=== PATIENT | female | born 1980 | race Caucasian/White ===

== ENCOUNTER 2023-01-16 21:25 | Emergency (ER) | payer SELFPAY ==
--- OUTSIDE RECORDS SUMMARY | 2023-01-16 21:29 | XMS REPORT | Continuity of Care Document ---
:1980 Author Organization [facility] t Address [address] [facility]. [address] [place] [address] Care Team Providers Name Role Phone Pcp, Patient Does Not Have A Primary Care Physician +[id number] Radha Woods RN Attending Clinician Unavailable JOSEPH CARRILLO Attending Clinician Unavailable Only, [facility] Test Attending Clinician Unavailable Joseph Carrillo MD Attending Clinician Areli Mclean RN Attending Clinician Unavailable Only, [facility]aro Test Attending Clinician Unavailable Dimitri Clifton DO Attending Clinician DIMITRI CLIFTON Attending Clinician Unavailable Only, Gal Adult Uc Test Attending Clinician Unavailable Unknown, Attending Attending Clinician Unavailable UNKNOWN, ATTENDING Attending Clinician Unavailable Janet Galvez Attending Clinician CODI CAVANAUGH Attending Clinician Unavailable Care, [facility]aro Urgent Attending Clinician Unavailable FADY BOWDEN Attending Clinician Unavailable Problems This patient has no known problems. Allergies, Adverse Reactions, Alerts This patient has no known allergies or adverse reactions. Social History Social Habit Start Date Stop Date Quantity Comments Source [facility] Exposure to 2021-10-25 2021-11-04 Not sure University of SARS-CoV-2 (event) 00:00:00 11:40:00 [facility] Alcohol intake 2019-09-30 2019-09-30 Current [facility] 00:00:00 00:00:00 non-drinker of Hospital alcohol (finding) History of Social 2019-09-30 2019-09-[address] function 00:00:00 00:00:00 Hospital Tobacco use and 2017-12-17 2017-12-17 Smokeless [facility] exposure 00:00:00 00:00:00 tobacco non-user Hospital Sex Assigned At [birth year] [facility] 00:[facility]00 Hospital Smoking Status Start Date Stop Date Source Unknown if ever smoked [facility] smoked [facility] Medications Ordered Filled Start Stop Current Ordering Indication Dosage Frequency Signature Comments Components Source Medication Medication Date Date Medication? Clinician (SIG) Name Name No known No Univers medications 1-23 ity of 20:04: [address] No known No [facility] medications 1-23 ity of 20:04: [address] Procedures This patient has no known procedures. Plan of Care Planned Activity Planned Date Details Comments Source Future Scheduled 2023-01-05 COVID-19 VACCINE [facility] Test 15:04:03 (#1) [code = COVID-19 VACCINE (#1)] Future Scheduled 2023-01-05 Screening for [facility] Test 15:04:03 malignant neoplasm of cervix (procedure) [code = 373931096] Future Scheduled 2023-01-05 BREAST CANCER [facility] Test 15:04:03 SCREENING [code = BREAST CANCER SCREENING] Future Scheduled 2023-01-05 INFLUENZA VACCINE [facility] Test 15:04:03 [code = INFLUENZA VACCINE] Encounters Start End Encounter Admission Attending Care Care Encounter Source Date/Time Date/Time Type Type Clinicians Facility Department ID 2021-11-06 2021-11-06 Telephone LAM Woods [id number] Univers 00:00:00 00:00:00 Radha FOURNIER [id number] i [facility] [id number] Lazaro as [phone] [place] [address] Branch 2021-11-05 2021-11-05 Outpatient Andry CARRILLO [facility] [id number] Univers 18:45:00 18:45:[address] [facility] 2021-11-05 2021-11-05 Laboratory Only, Lazaro Uc Test [facility] 1.2.8 40.114 [id number] Univers 18:45:00 18:45:00 Only Joseph Carrillo [employer] [id number] ity of [place] [id number] [facility] [phone] [facility] & [address] Branch SPECIALTY CARE 2021-09-30 2021-09-30 Letter LAM Mclean 1.2.840.114 [id number] Univers 00:00:00 00:00:00 (Out) Areli [place] IRLANDA [id number] it y [facility] [id number] Lazaro as [id number] [address] 2021-09-29 2021-09-29 Laboratory Only, Lazaro Test [facility] 1.2.840. 114 [id number] Univers 14:30:00 14:45:00 Only Dimitri Clifton [facility] [id number]. 10 ity [place] [id number] [facility] [phone] [facility] PRIMARY & [facility] Branch SPECIALTY CARE 2021-09-29 2021-09-29 Outpatient R ELODIA [facility] [id number] Univers 14:30:00 14:30:00 [facility]-08-07 2021-08-07 LAM Cochran 1.2.840.114 [id number] Univers 00:00:00 00:00:00 (Out) Arelijose REEDY [id number] it y of [facility] 4.2.7.2.686 Lazaro as [id number] [address] 2021-08-06 2021-08-06 Outpatient R LORENA [facility] [id number] Univers 16:00:00 16:00:[address] [facility] 2021-08-06 2021-08-06 Laboratory Only, Lazaro Uc Test [facility] 1.2.8 40.114 [id number] Univers 16:00:00 16:00:00 Only LorenaJoseph [employer] [id number] ity [place] 4.2.7.2.686 [facility] [phone] [facility] & [address] SPECIALTY CARE 2021-07-24 2021-07-24 Laboratory Only, Gal Adult Uc Test [facility] 1.2.840.114 [id number] Univers 12:15:00 12:30:00 Only Unknown, Attending COMER [id number] ity of Joseph Carrillo PEDIATRIC 4.2.7.2.686 [facility] [id number] [facility] [address] 2021-07-24 2021-07-24 Outpatient R LORENA [facility] [id number] Univers 12:15:00 12:16:31 [facility] 2021-07-15 2021-07-15 Letter LAM Mclean 1.2.840.114 [id number] Univers 00:00:00 00:00:00 (Out) Areli FOURNIER [id number] it y [facility] [id number] Lazaro [id number] [facility] 019 Branch 2021-07-14 2021-07-14 Laboratory Only, L[facility]aro Uc Test [place] 1.2.8 40.114 [id number] Univers 17:15:00 17:30:00 Only Joseph Carrillo [facility] [id number] [facility] [id number] [facility] [id number] [facility] PR[facility] & [address] SPECIALTY CARE 2021-07-14 2021-07-14 Outpatient R LORENA [facility] [id number] Univers 17:15:00 17:15:00 [facility] 2021-07-14 2021-07-14 Outpatient R UNKNOWN, [facility] [id number] Univers 14:30:00 14:30:[address] [facility] 2021-07-14 2021-07-14 Outpatient R UNKNOWN, [facility] [id number] Univers 14:30:00 14:30:[address] [facility] 2021-07-14 2021-07-14 Outpatient R UNKNOWN, [facility] [id number] Univers 14:30:00 14:30:[address] [facility] 2021-07-03 2021-07-03 Laboratory Only, Gal Adult Uc Test [facility] 1.2.840.114 [id number] Univers 12:15:00 12:30:00 Only Manny Woodenn Jose GAINES [id number] ity of Joseph Carrillo PEDIATRIC 4.2.7.2.686 [facility] [id number] [place] [address] Branch 2021-07-03 2021-07-03 [facility] [id number] Univers 12:15:00 12:28:16 [facility] 2021-06-27 2021-06-27 Letter LAM Mclean 1.2.840.114 [id number] Univers 00:00:00 00:00:00 (Out) Areli FOURNIER [id number] it y of [facility] 4.2.7.2.686 [facility] [id number] [facility] 019 Branch 2021-06-26 2021-06-26 Laboratory Only, Gal Adult Uc Test [facility] 1.2.840.114 [id number] Univers 20:30:00 20:45:00 Only Lorena [facility] [id number] ity of PEDIATRIC 4.2.7.2.686 [facility] [phone] [address] 2021-06-26 2021-06-26 Outpatient Andry CARRILLO [facility] [id number] Univers 20:30:00 20:19:09 [facility] 2021-06-20 2021-06-20 Outpatient Andry CARRILLO [facility] [id number] Univers 18:00:00 19:02:57 [facility] 2021-06-20 2021-06-20 Laboratory Only, Lazaro Uc Test [facility] 1.2.8 40.114 [id number] Univers 18:00:00 19:02:57 [facility] [id number] it[place] 4.2.7.2.686 [facility] [phone] [facility] & [address] SPECIALTY CARE 2021-06-15 2021-06-15 Letter LAM Mclean 1.2.840.114 [id number] Univers 00:00:00 00:00:00 (Out) Areli FOURNIER [id number] it y [facility] [id number] Lazaro [id number] [place] [address] Branch 2021-06-13 2021-06-13 Laboratory Only, Lazaro Uc Test [facility] 1.2.8 40.114 [id number] Univers 11:15:00 13:15:39 Only Lorena Joseph H [employer] [id number] ity [place] 4.2.7.2.686 [facility] [place] [id number] [facility] [address] SPECIALTY CARE 2021-06-13 2021-06-13 Outpatient R LORENA [facility] [id number] Univers 11:15:00 11:15:00 [facility] 2021-06-07 2021-06-07 Laboratory Only, [facility] Uc Test [facility] 1.2.8 40.114 [id number] Univers 20:15:00 20:30:00 Only Lorena Joseph [employer] [id number] [facility] 4.2.7.2.686 [facility] [place] [phone] [facility] & [facility] Branch SPECIALTY CARE 2021-06-07 2021-06-07 Outpatient R LORENA [facility] [id number] Univers 20:15:00 20:15:00 [facility] 2021-05-27 2021-05-27 Outpatient R UNKNOWN, [facility] [id number] Univers 17:45:00 17:45:00 ATTENDING [facility] 2021-05-27 2021-05-27 Outpatient R UNKNOWN, [facility] [id number] Univers 17:45:00 17:45:00 ATTENDING [facility] 2021-05-27 2021-05-27 Outpatient R UNKNOWN, [facility] [id number] Univers 17:45:00 17:45:00 ATTENDING [facility] 2021-05-26 2021-05-26 Letter LAM Mclean 1.2.840.114 [id number] Univers 00:00:00 00:00:00 (Out) Areli FOURNIER 350.1.13.10 it y [facility] [id number] Lazaro as [id number] [place] [address] Branch 2021-05-25 2021-05-25 Outpatient R LORENA [facility] [id number] Univers 11:00:00 11:45:37 JOSEPH [facility] 2021-05-25 2021-05-25 Laboratory Only, Lazaro Test [facility] 1.2.8 40.114 [id number] Univers 11:00:00 11:15:00 Only LorenaJoseph [facility] [id number] [facility] [id number] [facility] [id number] [facility] [address] SPECIALTY CARE 2021-05-25 2021-05-25 Outpatient R LORENA [facility] [id number] Univers 11:00:00 11:00:00 [facility] 2021-05-22 2021-05-22 Outpatient R AFSHAN [facility] [id number] Univers 20:30:00 20:30:00 CODI contreras o bruce [facility] 2021-05-22 2021-05-22 Outpatient R AFSHAN [facility] [id number] Univers 20:30:00 20:30:00 CODI garsiay o bruce [facility] 2021-05-14 2021-05-14 Outpatient R UNKNOWN, [facility] [id number] Univers 11:30:00 11:30:00 ATTENDING [facility] 2021-05-14 2021-05-14 Outpatient R UNKNOWN, [facility] [id number] Univers 11:30:00 11:30:00 ATTENDING [facility] 2021-05-14 2021-05-14 Letter LAM Mclean 1.2.840.114 [id number] Univers 00:00:00 00:00:00 (Out) Areli FOURNIER [id number] it [facility] [id number] Lazaro as [id number] [place] [address] Branch 2021-05-13 2021-05-13 [facility] [id number] Univers 19:45:00 20:07:51 [facility] 2021-05-13 2021-05-13 Laboratory Only, Lazaro Uc Test [facility] 1.2.8 40.114 [id number] Univers 19:41:31 19:56:31 Only Lorena [facility] [id number] ity of [place] 4.2.7.2.686 [facility] [id number] [facility] & [address] SPECIALTY CARE 2021-05-13 2021-05-13 Outpatient Andry CARRILLO [facility] [id number] Univers 19:45:00 19:45:00 [facility] 2021-04-27 2021-04-27 Outpatient Andry CARRILLO [facility] [id number] Univers 15:30:00 15:54:24 [facility] 2021-04-27 2021-04-27 Laboratory Only, Lazaro Uc Test [facility] 1.2.8 40.114 [id number] Univers 15:19:26 15:54:24 Only Lorena [facility] 350.1.13.10 ity of [place] [id number] [facility] [phone] [facility] PR[facility] & [facility] Branch SPECIALTY CARE 2021-04-27 2021-04-27 Outpatient Andry CARRILLO [facility] [id number] Univers 15:30:00 15:30:00 [facility] 2021-04-17 2021-04-17 Letter LAM Mclean 1.2.840.114 [id number] Univers 00:00:00 00:00:00 (Out) Areli FOURNIER 350.1.13.10 it [facility] 4.2.7.2.686 Lazaro as [id number] [address] 2021-04-16 2021-04-16 [facility] [id number] Univers 11:30:00 11:37:59 [facility] 2021-04-16 2021-04-16 Laboratory Only, Lazaro Uc Test [facility] 1.2.8 40.114 [id number] Univers 11:18:57 11:37:59 Only Unknown, Attending HEALTH 350.1.13.10 ity of [place] 4.2.7.2.686 [place] [id number] [facility] PR[facility] & [address] SPECIALTY CARE 2021-04-16 2021-04-16 Outpatient Andry CARRILLO [facility] [id number] Univers 11:30:00 [facility]:30[facility] 2021-04-03 2021-04-03 Letter Care, [facility] [id number] Univers 00:00:00 00:00:00 (Out) Urgent HEALTH 350.1.13.10 it y of [place] 4.2.7.2.686 [facility] [id number] [facility] & [address] SPECIALTY CARE 2021-04-01 2021-04-01 Outpatient Andyr CARRILLO [facility] [id number] Univers 16:00:00 16:00:00 [facility] 2021-04-01 2021-04-01 Outpatient Andry CARRILLO [facility] [id number] Univers 16:00:00 16:00:00 [facility] 2021-04-01 2021-04-01 Outpatient Andry CARRILLO [facility] [id number] Univers 16:00:00 16:00:00 [facility] 2021-04-01 2021-04-01 Outpatient Andry CARRILLO [facility] [id number] Univers 16:00:00 16:00:00 [facility] 2021-04-01 2021-04-01 Outpatient Andry CARRILLO [facility] [id number] Univers 14:00:00 14:02:02 [facility] 2021-04-01 2021-04-01 Laboratory Only, [facility] 1.2.8 40.114 [id number] Univers 13:46:09 14:02:02 Only Unknown, Attending HEALTH 350.1.13.10 ity of Joseph Carrillo [place] 4.2.7.2.686 [place] [id number] [facility] PR[facility] & [address] SPECIALTY CARE 2021-04-01 2021-04-01 Outpatient Andry CARRILLO [facility] [id number] Univers 14:00:00 14:00:[address] [facility] 2019-09-30 2019-09-30 Emergency DENNISE FADY [facility] [id number] [place] 00:00:00 00:00:[address] Results This patient has no known results.
--- NOTE | 2023-01-16 21:33 | EDPHYS ---
Physician Documentation [facility] Name: Arabella Lacey Age: 43 yrs Sex: Female : 1980 Arrival Date: 01/16/2023 Time: 21:25 Bed 13 Private MD: ED Physician Joon Styles HPI: 01/16 21:38 This 43 yrs old Female presents to ER via Ambulatory with complaints of Toothache, Jaw kb Pain. 21:38 The patient presents with pain, redness, swelling. The problem is located in the lower kb left first molar and lower left second bicuspid. Onset: The symptoms/episode began/occurred yesterday. Duration: The symptoms are continuous. Modifying factors: The symptoms are alleviated by nothing, the symptoms are aggravated by nothing. Associated signs and symptoms: Pertinent positives: pain, redness in area, swelling. Severity of symptoms: At their worst the symptoms were moderate, in the emergency department the symptoms are unchanged. The patient has experienced similar episodes in the past, a few times. The patient has not recently seen a physician. Pt reports pain, swelling and redness to left lower teeth that started yesterday. States this has happened in the past and she needs the teeth pulled, but can't afford to go to the dentist at this time. 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 - Social history:: Smoking status: Reported history of juuling and/or vaping. ROS: 21:38 Constitutional: Negative for fever, chills, and weight loss. kb 21:38 ENT: Positive for dental pain. 21:38 All other systems are negative. Exam: 21:38 Constitutional: This is a well developed, well nourished patient who is awake, alert, kb and in no acute distress. Head/Face: Normocephalic, atraumatic. Cardiovascular: Regular rate and rhythm with a normal S1 and S2. No gallops, murmurs, or rubs. No pulse deficits. Respiratory: Respirations even and unlabored. No increased work of breathing. Talking in full sentences Skin: Warm, dry with normal turgor. Normal color. MS/ Extremity: Pulses equal, no cyanosis. Neurovascular intact. Full, normal range of motion. Neuro: Awake and alert, GCS 15, oriented to person, place, time, and situation. Moves all extremities. Normal gait. 21:38 ENT: Dental exam: gum swelling, that is mild, specifically in the lower left first molar (#19) and lower left second bicuspid (#20), pain, that is moderate, specifically in the lower left first molar (#19) and lower left second bicuspid (#20). Vital Signs: 21:33 BP 130 / 82; Pulse 88; Resp 18; Temp 97.1(O); Pulse Ox 100% on R/A; Weight 79.38 kg; mb9 Height 5 ft. 1 in. ; Pain 10/10; 21:33 Body Mass Index 33.07 (79.38 kg, 154.94 cm) mb9 21:33 Pain Scale: Adult mb9 MDM: 21:30 Patient medically screened. kb 21:38 Differential diagnosis: dental caries, gingivitis, dental abscess. Data reviewed: vital kb signs, nurses notes. Care significantly affected by the following Social Determinants of Health: Poor access to healthcare and/or lack of insurance. Counseling: I had a detailed discussion with the patient and/or guardian regarding: the historical points, exam findings, and any diagnostic results supporting the discharge/admit diagnosis, the need for outpatient follow up, a dentist, to return to the emergency department if symptoms worsen or persist or if there are any questions or concerns that arise at home. Administered Medications: 21:40 Drug: Amoxicillin-Clavulanate PO 875 mg Route: PO; mb9 21:42 Follow up: Response: No adverse reaction mb9 Disposition: 01/17 02:58 Co-signature as Attending Physician, Joon Styles MD I agree with the assessment sp4 and plan of care. I reviewed the patient's care provided by the Advanced Practice Provider and agree with the diagnosis and treatment plan. Disposition Summary: 01/16/23 21:33 Discharge Ordered Location: Home kb Condition: Stable kb Diagnosis - Periapical abscess without sinus kb Followup: kb - With: Emergency Department - When: As needed - Reason: Worsening of condition Followup: kb - With: Private Physician - When: 2 - 3 days - Reason: Recheck today's complaints, Continuance of care, Re-evaluation by your physician Discharge Instructions: - Discharge Summary Sheet kb - Dental Pain, [id number] kb - Dental Abscess, [id number]-[id number] kb Forms: - Medication Reconciliation Form kb - Thank You Letter kb - Antibiotic Education kb - Prescription Opioid Use kb - Patient Portal Instructions kb - Leadership Thank You Letter kb Prescriptions: - Augmentin 875-125 mg Oral Tablet - take 1 tablet by ORAL route every 12 hours for 10 days; 20 tablet; Refills: 0, kb Product Selection Permitted Signatures: Yahaira Brown FNP-C FNP-Ckb Breneman, Mary Beth, RN RN mb9 Joon Styles MD MD sp4
--- NOTE | 2023-01-16 21:43 | ER ---
Nurse's Notes [facility] Name: Arabella Lacey Age: 43 yrs Sex: Female : 1980 Arrival Date: 01/16/2023 Time: 21:25 Bed 13 Private MD: Diagnosis: Periapical abscess without sinus Presentation: 01/16 21:33 Chief complaint: Patient states: "My tooth and left jaw started hurting really bad mb9 yesterday. Now it feels swollen". Coronavirus screen: Vaccine status: Patient reports receiving the 2nd dose of the covid vaccine. Ebola Screen: No symptoms or risks identified at this time. Initial Sepsis Screen: Does the patient meet any 2 criteria? No. Patient's initial sepsis screen is negative. Does the patient have a suspected source of infection? No. Patient's initial sepsis screen is negative. Risk Assessment: Do you want to hurt yourself or someone else? Patient reports no desire to harm self or others. Onset of symptoms was January 16, 2023. 21:33 Method Of Arrival: Ambulatory mb9 21:33 Acuity: SUSANNE 4 mb9 Triage Assessment: 21:34 General: Appears in no apparent distress. Behavior is calm, cooperative. Pain: mb9 Complains of pain in jaw Pain does not radiate. Pain currently is 10 out of 10 on a pain scale. Quality of pain is described as aching, throbbing. EENT: Poor dentition noted. Neuro: Andrea Agitation-Sedation Scale (RASS): 0 - Alert and Calm Level of Consciousness is awake, alert, obeys commands, Oriented to person, place, time, situation, Appropriate for age. Cardiovascular: Patient's skin is warm and dry. Respiratory: Airway is patent Respiratory effort is even, unlabored, Respiratory pattern is regular, symmetrical, Breath sounds are clear bilaterally. GI: No signs and/or symptoms were reported involving the gastrointestinal system. : No signs and/or symptoms were reported regarding the genitourinary system. Derm: Skin is pink, warm \\T\\ dry. Musculoskeletal: Range of motion: intact in all extremities. MEDICAL DOCTOR: 21:35 LMP N/A - mb9 Historical: - Allergies: 21:34 No Known Allergies; mb9 - Home Meds: 21:34 None [Active]; mb9 - PMHx: 21:34 Anxiety; Depressive disorder; mb9 - PSHx: 21:34 Ligation of fallopian tube; mb9 - Immunization history:: Adult Immunizations up to date. - Social history:: Smoking status: Reported history of juuling and/or vaping. Screenin:36 [facility] ED Fall Risk Assessment (Adult) History of falling in the last 3 months, mb9 including since admission No falls in past 3 months (0 pts) Confusion or Disorientation No (0 pts) Intoxicated or Sedated No (0 pts) Impaired Gait No (0 pts) Mobility Assist Device Used No (0 pt) Altered Elimination No (0 pt) Score/Fall Risk Level 0 - 2 = Low Risk Oriented to surroundings, Maintained a safe environment, Educated pt \\T\\ family on fall prevention, incl call for assistance when getting out of bed. Abuse screen: Denies threats or abuse. Nutritional screening: No deficits noted. Tuberculosis screening: No symptoms or risk factors identified. Assessment: 21:35 Reassessment: No changes from previously documented assessment. Patient and/or family mb9 updated on plan of care and expected duration. Pain level reassessed. Patient is alert, oriented x 3, equal unlabored respirations, skin warm/dry/pink. Vital Signs: 21:33 BP 130 / 82; Pulse 88; Resp 18; Temp 97.1(O); Pulse Ox 100% on R/A; Weight 79.38 kg; mb9 Height 5 ft. 1 in. ; Pain 10/10; 21:33 Body Mass Index 33.07 (79.38 kg, 154.94 cm) mb9 21:33 Pain Scale: Adult mb9 ED Course: 21:28 Patient arrived in ED. kj1 21:30 Yahaira Brown FNP-C is PHCP. kb 21:30 Joon Styles MD is Attending Physician. kb 21:34 Triage completed. mb9 21:34 Arm band placed on. mb9 21:36 Erika Ty RN is Primary Nurse. mb9 21:36 Placed in gown. Bed in low position. Call light in reach. Side rails up X 1. Client mb9 placed on continuous cardiac and pulse oximetry monitoring. NIBP monitoring applied. 21:36 No provider procedures requiring assistance completed. Patient did not have IV access mb9 during this emergency room visit. Administered Medications: 21:40 Drug: Amoxicillin-Clavulanate PO 875 mg Route: PO; mb9 21:42 Follow up: Response: No adverse reaction mb9 Medication: 21:36 VIS not applicable for this client. mb9 Outcome: 21:33 Discharge ordered by . selvin 21:42 Discharged to home ambulatory. mb9 21:42 Condition: stable 21:42 Discharge instructions given to patient, Instructed on discharge instructions, follow up and referral plans. Demonstrated understanding of instructions, follow-up care, medications, Prescriptions given X 1. 21:42 Patient left the ED. mb9 Signatures: Yahaira Brown, ADULT CROSSING GUARD-C NORMA-Saundra Hong kj1 Erika Ty RN RN mb9
[2023-01-16] MEDS ORDERED: AMOX/K CLAV 875 MG TAB ONE (21:48)
[2023-01-16 21:55] VITALS: BP 130/82; TEMP 97.1; O2SAT 100
== END 2023-01-16 21:42 | disposition home or self-care (01) ==
LOC: ER 21:25
DX: K04.7 Periapical abscess without sinus (principal)
CPT/HCPCS: 99283